=== PATIENT | female | born 1955 ===

== ENCOUNTER 2021-09-30 06:15 | Emergency (ER) | payer BC ==
[2021-09-30] MEDS: Ondansetron 4 MG/2 ML SDV IVPUSH ONE (06:50)
[2021-09-30] MEDS: Ketorolac 60 MG/2 ML SDV IVPUSH ONE (06:50)
[2021-09-30] MEDS: Sodium Chloride 0.9% 1,000 ML IV ONE (07:05)
[2021-09-30] MEDS ORDERED: Tamsulosin 0.4 MG Cap.ER ONE (09:15)
[2021-09-30] MEDS ORDERED: Ondansetron 4 MG Tab.DIS ONE (09:15)
[2021-09-30] MEDS ORDERED: Acetaminophen/HYDROcodone 325-5 MG Tab ONE (09:15)
== END 2021-09-30 09:43 | disposition home or self-care (01) ==
LOC: LB.ED 06:15
DX: N20.1 Calculus of ureter (principal); Z90.710 Acquired absence of both cervix and uterus; Z88.0 Allergy status to penicillin
CPT/HCPCS: 36415; 74176; 80053; 81001; 85025; 96374; 96375; 99284-25; A9270-GY; J1885; J2405; J7030; Q0162